=== PATIENT | female | born 2000 | race American Indian/Alaskan Native ===

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

== ENCOUNTER 2023-05-31 22:57 | Emergency (ER) | payer MEDICAID, OTHER ==
[2023-05-31] MEDS: Lidocaine 1% with EPINEPHrine 1:100,000 20 ML MDV INJECT ONE (23:31)
== END 2023-06-01 00:04 | disposition home or self-care (01) ==
LOC: DL.ED 22:57
DX: T18.0XXA Foreign body in mouth, initial encounter (principal); F17.210 Nicotine dependence, cigarettes, uncomplicated; Z88.0 Allergy status to penicillin; Z88.1 Allergy status to other antibiotic agents
CPT/HCPCS: 10120; 99282; 99283-25; J3490

== ENCOUNTER 2023-07-25 11:48 | Emergency (ER) | payer MEDICAID, OTHER ==
[2023-07-25 12:59] VITALS: BP 129/89; PULSE 100
[2023-07-25] MEDS: Naproxen 250 MG Tab PO ONE (14:42)
== END 2023-07-25 14:45 | disposition home or self-care (01) ==
LOC: DL.ED 11:48
DX: N94.6 Dysmenorrhea, unspecified (principal); F17.200 Nicotine dependence, unspecified, uncomplicated; Z88.0 Allergy status to penicillin; Z88.1 Allergy status to other antibiotic agents; Z79.899 Other long term (current) drug therapy
CPT/HCPCS: 99283; A9270-GY

== ENCOUNTER 2024-01-29 15:22 | Emergency (ER) | payer MEDICAID, OTHER ==
[2024-01-29 15:44] VITALS: BP 116/73; PULSE 90
== END 2024-01-29 15:48 | disposition home or self-care (01) ==
LOC: DL.ED 15:22
DX: R21 Rash and other nonspecific skin eruption (principal); Z88.0 Allergy status to penicillin; Z88.1 Allergy status to other antibiotic agents
CPT/HCPCS: 99282

== ENCOUNTER 2024-07-23 13:47 | Emergency (ER) | payer OTHER ==
[2024-07-23] MEDS: Ondansetron 4 MG Tab.DIS PO ONE (15:04)
[2024-07-23] MEDS: Take Home: Ondansetron 4 MG Tab.DIS, 5 Tab Pack PO ONE (15:04)
[2024-07-23 15:14] VITALS: BP 128/86; PULSE 121
== END 2024-07-23 15:06 | disposition home or self-care (01) ==
LOC: DL.ED 13:47
DX: R19.7 Diarrhea, unspecified (principal); R11.0 Nausea; Z88.1 Allergy status to other antibiotic agents; Z79.899 Other long term (current) drug therapy
CPT/HCPCS: 99283; A9270; Q0162